=== PATIENT | male | born 1960 | race Caucasian/White ===

== ENCOUNTER 2023-07-09 03:34 | Emergency (ER) | payer BC, SELFPAY ==
[2023-07-09 03:37] VITALS: BP 137/88
[2023-07-09 03:45] VITALS: BMI 34.1
[2023-07-09 03:56] LABS: % Basophils 0.3 % (0-2); % Eosinophils 1.1 % (0-6); % Immature Granulocytes 0.6 % (0-0.5); % Lymphocytes 21.3 % (20.5-51.1); % Monocytes 7.1 % (1.7-9.3); % Neutrophils 69.6 % (42.2-75.2); Absolute Eosinophils 0.1 10^3/uL (0-0.7); Absolute Immature Granulocytes 0.1 10^3/uL (0-0.05); Absolute Monocytes 0.7 10^3/uL (0.1-0.6); Absolute Neutrophils 6.4 10^3/uL (1.4-6.5); Hematocrit 40.6 % (39.0-52.0); Hemoglobin 14.3 g/dL (13.0-18.0); Mean Corp Hgb Conc. 35.2 g/dL (33.0-37.0); Mean Corpuscular Hgb 31.4 pg (27.0-31.0); Mean Platelet Volume 9.7 fL (7.4-10.4); Nucleated Red Blood Cells % 0 % (-); Platelet Count 216 10^3/uL (130-400); Red Blood Cell Count 4.56 10^6/uL (4.70-6.10); Red Cell Dist. Width 12.5 % (11.5-14.5); White Blood Cell Count 9.2 10^3/uL (4.8-10.8)
[2023-07-09 04:00] VITALS: BP 134/88
[2023-07-09 04:07] LABS: ALT (SGPT) 21 U/L (0-50); AST (SGOT) 28 U/L (17-59); Albumin 4.6 g/dl (3.5-5.0); Alkaline Phosphatase 69 U/L (38-126); Blood Urea Nitrogen 20 mg/dl (9-20); Calcium 9.8 mg/dl (8.4-10.2); Carbon Dioxide 21 mmol/L (22-30); Chloride 102 mmol/L (98-107); Estimated Creatinine Clearance 110 ml/min; Glucose 204 mg/dl (70-99); Potassium 4.2 mmol/L (3.5-5.1); Sodium 134 mmol/L (135-145); Total Bilirubin 0.7 mg/dl (0.2-1.3); Total Protein 7.3 g/dl (6.3-8.2); eGFR > 60.00
[2023-07-09 05:00] VITALS: BP 127/82
[2023-07-09] MEDS: NSS 1000 IV (05:07)
[2023-07-09 05:09] LABS: Alcohol None Detected
[2023-07-09 05:48] VITALS: BP 136/86; BP 142/98; BP 149/98; PULSE 79; PULSE 88; PULSE 91
[2023-07-09 06:00] VITALS: BP 135/83
--- NOTE | 2023-07-09 06:18 | ED.GENMED ---
History of Present Illness
General
Chief Complaint: Dizziness
Source: patient and ambulance crew
Exam Limitations: none
Time Seen by Provider: 07/09/23 04:28
Nursing documentation reviewed up to this point in time: agreed with
Travel History
Have you had any contact with someone who has COVID-19?: No
Do you have any symptoms of coronavirus? Fever > 100 degrees, chills, cough, shortness of breath, sore throat, loss of taste or smell, muscle aches, or headache?: No
History of Present Illness
History of Present Illness:
This is a 62-year-old gentleman who has history of hypertension, [id number] diabetes. He was sitting at a bar with a friend for approximately 2 hours. 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 While sitting
at the bar he suddenly became lightheaded, dizzy, diaphoretic and felt that he was going to pass out. He was assisted to lie down and symptoms slowly resolved. He does admit to similar episodes of lightheadedness, diaphoresis and near syncope
occurring perhaps 10 years ago as well as 1 other time in childhood.
Prior to tonight he has been feeling well. He did eat dinner tonight but consumed a somewhat smaller meal than usual. He again admits to only consuming half of an alcoholic drink and denies daily nor frequent alcohol use. He denies drug use.
His only daily medications are amlodipine and metformin.
Prehospital Accu-Chek of 202. Prehospital blood pressure 120/78 and then repeat 110/75 with heart rate of 77. Patient states that blood pressure is moderately low for him he states his blood pressure generally runs 140 systolic.
He denies chest pain or palpitations, no cough no shortness of breath.
Currently feeling markedly improved since arrival to the ED, symptoms have resolved. He denies a sense of spinning, no vision loss, no headache.
Past History
Past History
ED Past Medical History: HTN and NIDDM
ED Past Surgical History: Other (Mandible surgery)
Social History
Tobacco: Non-smoker
Alcohol: Occasional
Personal:
Living: with family
Employment: Employed
Phy Exam
Physical Exam
Physical Exam:
GENERAL: Alert , in no apparent distress. 62-year-old gentleman appears his stated age, bright and alert, pleasant, appears in no acute distress.
EYE: pupils equal and reactive. anicteric. Extraocular muscles intact.
NECK: Supple, nontender, no meningismus, no significant adenopathy.
ENT: posterior pharynx is clear, oral mucosa is moist. No rhinorrhea.
CARDIAC: Regular rate and rhythm. no murmur.
LUNGS: Clear breath sounds bilaterally, no acute respiratory distress, no wheezes/rales/rhonchi
ABDOMEN: Soft, nondistended, without focal tenderness, normoactive BS.
NEUROLOGICAL: Alert and oriented x3, no focal neuro deficits. Cranial nerves II through XII grossly intact. Motor strength is 5/5 bilaterally. Gross sensation is intact.
SKIN: Warm and dry, normal color, skin intact. No rash.
MUSCULOSKELETAL: No C/C/E. peripheral pulses are full and equal b/l. No palpable tenderness.
PSYCH: Normal and appropriate interaction.
Course
Orders/Labs/Results
Orders:
Orders
07/09/23 03:36
Electrocardiogram (*1) Urgent
Reason for Study: Chest Pain
EKG- Treatment ONCE
07/09/23 03:44
Alcohol Urgent
Complete Blood Count/With Diff Urgent
Comprehensive Metabolic Panel Urgent
07/09/23 04:28
Add On- LAB Urgent
Tests Added?: alcohol level
07/09/23 04:59
0.9% Sodium Chloride 1000 ml [Nss] 1,000 ml IV BOLUS
Abnormal Lab Results
07/09/23
03:44
RBC 4.56 L 10^6/uL
(4.70-6.10)
MCH 31.4 H pg
(27.0-31.0)
Abs Immat Gran (auto) 0.1 H 10^3/uL
(0-0.05)
Absolute Monos (auto) 0.7 H 10^3/uL
(0.1-0.6)
Immature Gran % 0.6 H %
(0-0.5)
Sodium 134 L mmol/L
(135-145)
Carbon Dioxide 21 L mmol/L
(22-30)
Glucose 204 H mg/dl
(70-99)
07/09/23 03:44
07/09/23 03:44
Vital Signs
Initial and Last Documented VS:
Initial Vital Signs
Temp Pulse Resp BP Pulse Ox
97.7 F 75 18 137/88 99
07/09/23 03:37 07/09/23 03:37 07/09/23 03:37 07/09/23 03:37 07/09/23 03:37
Last Documented Vital Signs
Temp Pulse Resp BP Pulse Ox
97.7 F 74 17 134/88 95
07/09/23 03:37 07/09/23 04:30 07/09/23 03:45 07/09/23 04:00 07/09/23 04:30
MDM/Problems Addressed
Differential Diagnosis Includes:
Concern for vasovagal near syncope, cardiac arrhythmia, less likely acute vertigo.
Symptoms have resolved and patient currently feeling well.
Will check labs, EKG and continue residential monitor.
Will plan for orthostatic vital signs and consider IV fluid bolus.
Chronic conditions affecting care: DM and HTN
*Pulse Oximetry
Patient hypoxic: no
*EKG
Interpreted by ED Provider?: Yes
Interpretation: normal
Comparison EKG: no changes (Unchanged from previous 2013)
Rate: normal
Rhythm: sinus
Buck[place]: normal axis
Interval: normal interval
QRS Pattern: normal QRS
Ischemia: no ischemia
*Digestion Operator Interpretation
Rate: normal
Interpretation: normal
Rhythm: sinus
*Critical Care Note
Total Time (30-74mins, 75-104mins- exclusive of procedures): Not Applicable
Update Note
Update Note:
Patient feeling well, no return of symptoms.
Orthostatic vital signs are negative.
Labs are unremarkable save for mildly elevated random glucose. EtOH is negative as per patient's history.
I suspect vasovagal episode versus bradycardia arrhythmia. cafeteria monitor continues to show normal sinus rhythm without arrhythmia.
Will discharge to home with recommendations for follow-up with PCP and also recommend follow-up with cardiology.
Return precautions discussed.
ED Attending Note
-
Portions of this chart may have been created with voice recognition software.� Occasional wrong word or��sound alike� substitutions may have occurred due to the inherent limitations of voice recognition software.
Discharge Plan
Departure
Patient Disposition: Home (Routine Discharge)
Date of Disposition: 07/09/23
Time of Disposition: 06:24
Patient with high blood pressure during this ER visit?: No
Condition: Good
Discharge Problem:
Vasovagal near-syncope
Instructions: Near Fainting (DC)
Prescriptions:
No Action
amlodipine 5 MG tablet
PO BID
Patient Comments:
UNKNOWN EXACT DOSE
metformin 500 mg Tablet
500 mg PO BID
Blood Pressure Med
Patient Comments:
PT TAKES 2 DIFFERENT MEDS FOR HIGH BLOOD PRESSURE, UNSURE OF DRUG NAMES OR DOSES.
Referrals:
Bartolo Arce MD [Family Provider] - Call in 1-3 days for appt
Farnaz Jasso DO [Active] - Call in 1-3 days for appt
Interventions
Interventions:
*Risk Screen - Suicide Last Done: 07/09/23 03:45
*General Assessment Last Done: 07/09/23 03:45
*Neglect/Abuse Screening Last Done: 07/09/23 03:45
*ED COVID-19 Vaccine History Last Done: 07/09/23 03:45
ED- Neurological Assessment Last Done: 07/09/23 03:49
ED- Cardiac Assessment Last Done: 07/09/23 03:49
Discharge Date and Time
Print Language: DANISH
== END 2023-07-09 06:45 | disposition home or self-care (01) ==
LOC: EMR 03:34
PROVIDERS: EMERGENCY PHYSICIAN Emergency Medicine; FAMILY PHYSICIAN Internal Medicine
DX: R55 Syncope and collapse (principal); I10 Essential (primary) hypertension; E11.9 Type 2 diabetes mellitus without complications
CPT/HCPCS: 99284; 96360; 80053; 82077; 85025; 93005